=== PATIENT | male | born 1945 | race Caucasian/White ===

== ENCOUNTER 2017-11-17 12:35 | Inpatient (IN) | payer OTHER ==
[2017-11-17] MEDS ORDERED: ONDANSETRON 4 MG INJ IV ×2 (12:59→17:00)
[2017-11-17] MEDS ORDERED: NITROGLYCERIN 2% 1 GM OINT PKT TD (12:59)
[2017-11-17] MEDS ORDERED: morphine 4 MG/ML VIAL IV (12:59)
[2017-11-17] MEDS ORDERED: NITROGLYCERIN (SL) 0.4 MG TAB SL (13:00)
[2017-11-17 13:17] LABS: ADD MAN DIFF? NO
[2017-11-17 13:22] LABS: WHITE BLOOD COUNT 12.2 10^3/ul (4.8-10.8)
[2017-11-17 13:22] LABS: BASOPHIL # 0.1 10^3/ul (0.0-0.1); BASOPHILS % 0.4 % (0.0-2.0); EOSINOPHILS % 0.2 % (0.0-7.0); HEMATOCRIT 36.1 % (42.0-52.0); HEMOGLOBIN 11.9 g/dl (14.0-18.0); LYMPHOCYTES # 0.7 10^3/ul (0.8-2.9); LYMPHOCYTES % 5.9 % (15.0-51.0); MEAN CORPUSCULAR HEMOGLOBIN 33.3 pg (29.0-33.0); MEAN CORPUSCULAR VOLUME 101.1 fl (82.0-101.0); MEAN PLATELET VOLUME 10.2 fl (7.4-10.4); MONOCYTE # 0.8 10^3/ul (0.3-0.9); MONOCYTES % 6.8 % (0.0-11.0); NEUTROPHIL # 10.6 10^3/ul (1.6-7.5); NEUTROPHILS % 86.2 % (39.0-77.0); PLATELET COUNT 196 10^3/UL (140-415); RED BLOOD COUNT 3.57 10^6/ul (4.70-6.10); RED CELL DISTRIBUTION WIDTH 13.5 % (11.5-14.5)
[2017-11-17 13:39] LABS: ALANINE AMINOTRANSFERASE 21 IU/L (13-69); ALBUMIN 3.7 g/dl (3.3-4.9); ALBUMIN/GLOBULIN RATIO 1.54; ALKALINE PHOSPHATASE 72 IU/L (42-121); ANION GAP 12 (8-16); ASPARTATE AMINO TRANSFERASE 34 IU/L (15-46); BILIRUBIN,INDIRECT 0.2 mg/dl (0-1.1); BILIRUBIN,TOTAL 0.2 mg/dl (0.2-1.3); BLOOD UREA NITROGEN 36 mg/dl (7-20); CALCIUM 8.7 mg/dl (8.4-10.2); CARBON DIOXIDE 23 mmol/L (21-31); CHLORIDE 110 mmol/L (97-110); CREATININE 2.84 mg/dl (0.61-1.24); GLUCOSE 54 mg/dl (70-220); POTASSIUM 4.2 mmol/L (3.5-5.1); SODIUM 141 mmol/L (135-144); TOTAL PROTEIN 6.1 g/dl (6.1-8.1)
[2017-11-17 13:47] LABS: B-TYPE NATRIURETIC PEPTIDE 1360 PG/ML (0-125)
[2017-11-17 13:51] LABS: TROPONIN-I 0.044 ng/ml (0.000-0.120)
[2017-11-17] MEDS ORDERED: SOD CHLORIDE 0.9% 1,000 ML IV (16:46)
[2017-11-17] MEDS ORDERED: MAGNESIUM HYDROXIDE 30ML CUP PO (17:00)
[2017-11-17] MEDS ORDERED: NACL 0.9% 3 ML SYG IV (17:00)
[2017-11-17] MEDS ORDERED: ACETAMINOPHEN 325 MG TAB PO ×2 (17:00)
[2017-11-17] MEDS ORDERED: NA PHOSPHATE/BIPHOS 133 ML ENEMA PR (17:00)
[2017-11-17] MEDS ORDERED: DOCUSATE SODIUM 100 MG CAP PO (17:00)
[2017-11-17] MEDS ORDERED: ALBUTEROL/IPRATROPIUM (NEB) 3 ML AMP HHN (17:00)
[2017-11-17 17:10] LABS: PROTIME 12.2 Sec (11.9-14.9)
[2017-11-17 17:11] LABS: PARTIAL THROMBOPLASTIN TIME 38.8 Sec (23.0-35.0)
[2017-11-17 17:16] LABS: CREATINE KINASE 1239 IU/L (23-200)
[2017-11-17 17:27] LABS: CK-MB 5.07 ng/ml (0.0-2.4)
[2017-11-17] MEDS ORDERED: DEXTROSE 50% 50 ML SYRINGE IV ×2 (17:30)
[2017-11-17] MEDS ORDERED: GLUCAGON 1 MG INJ IM (17:30)
[2017-11-17] MEDS ORDERED: GLUCOSE GEL 15 GRAM TUBE PO ×2 (17:30)
[2017-11-17] MEDS ORDERED: GLUCOSE GEL 15 GRAM TUBE BUCCAL (17:30)
[2017-11-17 17:33] LABS: FREE T4 (FREE THYROXINE) 1.13 ng/dl (0.78-2.44)
[2017-11-17 18:22] LABS: ADD UMIC YES; UR ASCORBIC ACID NEGATIVE (NEGATIVE); UR BILIRUBIN (Dip) NEGATIVE (NEGATIVE); UR BLOOD (Dip) 1+ mg/dL (NEGATIVE); UR CLARITY CLEAR (CLEAR); UR COLOR STRAW (YELLOW); UR GLUCOSE (Dip) 1+ mg/dL (NEGATIVE); UR KETONES (Dip) NEGATIVE (NEGATIVE); UR LEUKOCYTE ESTERASE (Dip) NEGATIVE Leu/ul (NEGATIVE); UR NITRITE (Dip) NEGATIVE (NEGATIVE); UR RBC 0 /HPF (0-5); UR SPECIFIC GRAVITY (Dip) 1.006 (1.003-1.030); UR TOTAL PROTEIN (Dip) 2+ mg/dl (NEGATIVE); UR UROBILINOGEN (Dip) NEGATIVE (NEGATIVE); UR WBC 0 /HPF (0-5)
[2017-11-17] MEDS: HYDROCODONE/APAP (5/325) TAB PO (18:41)
[2017-11-17] MEDS: INSULIN ASPART [NOVOLOG] 3 ML PEN SC ×2 (18:54→21:00)
[2017-11-17 18:55] LABS: SODIUM,URINE RANDOM 65 mmol/L (30-90)
[2017-11-17 18:55] LABS: CREATININE,URINE RANDOM 31.44 mg/dl (20-370); CREATININE,URINE RANDOM 31.73 mg/dl (20-370)
[2017-11-17 19:03] LABS: PROTEIN/CREAT RATIO 7.91 RATIO
[2017-11-17] MEDS: SOD CHLORIDE 0.45% 1,000 ML IV (19:18)
[2017-11-17 22:03] LABS: HAAIG REFLEX REFLEX FILED
[2017-11-17] MEDS: SOD CHLORIDE 0.9% 1,000 ML IV (22:11)
[2017-11-17 22:22] LABS: PHOSPHORUS 3.6 mg/dl (2.5-4.9)
[2017-11-17 22:35] LABS: CK-MB 5.97 ng/ml (0.0-2.4)
[2017-11-17 22:41] LABS: TROPONIN-I 0.186 ng/ml (0.000-0.120)
[2017-11-17 22:53] LABS: CK INDEX 0.3; CREATINE KINASE 2325 IU/L (23-200)
[2017-11-17 22:54] LABS: HEPATITIS B SURFACE ANTIGEN NEGATIVE (NEGATIVE)
[2017-11-17 23:12] LABS: HEPATITIS B CORE ANTIBODY NEGATIVE (NEGATIVE); HEPATITIS C VIRAL ANTIBODY NEGATIVE (NEGATIVE)
[2017-11-17] MEDS: FAMOTIDINE 20 MG TAB PO (23:16)
[2017-11-17] MEDS: ATORVASTATIN 80 MG TAB PO (23:16)
[2017-11-17] MEDS: NICOTINE (21 MG/24 HR) PATCH TRANSDERM (23:16)
[2017-11-17] MEDS: HEPARIN 5,000 UNIT/0.5 ML VIAL SC (23:40)
[2017-11-17] MEDS: INSULIN GLARGINE [LANTus] (100 UNITS/ML) SYG SC (23:41)
[2017-11-18] MEDS: INSULIN ASPART [NOVOLOG] 3 ML PEN SC ×5 (01:20→20:53)
[2017-11-18] MEDS: ACCU-CHEK XX (02:00)
[2017-11-18] MEDS: HYDROCODONE/APAP (5/325) TAB PO ×3 (05:27→19:31)
[2017-11-18 05:42] LABS: ADD MAN DIFF? NO
[2017-11-18 05:50] LABS: BASOPHILS % 0.7 % (0.0-2.0); EOSINOPHILS # 0.1 10^3/ul (0.0-0.5); EOSINOPHILS % 1.6 % (0.0-7.0); HEMATOCRIT 33.3 % (42.0-52.0); HEMOGLOBIN 10.7 g/dl (14.0-18.0); LYMPHOCYTES # 0.9 10^3/ul (0.8-2.9); LYMPHOCYTES % 14.3 % (15.0-51.0); MEAN CORPUSCULAR HGB CONC 32.1 g/dl (32.0-37.0); MEAN CORPUSCULAR VOLUME 102.8 fl (82.0-101.0); MONOCYTE # 0.6 10^3/ul (0.3-0.9); NEUTROPHIL # 4.4 10^3/ul (1.6-7.5); NEUTROPHILS % 73.2 % (39.0-77.0); PLATELET COUNT 175 10^3/UL (140-415); RED BLOOD COUNT 3.24 10^6/ul (4.70-6.10); RED CELL DISTRIBUTION WIDTH 13.8 % (11.5-14.5)
[2017-11-18 05:50] LABS: WHITE BLOOD COUNT 6.1 10^3/ul (4.8-10.8)
[2017-11-18 06:07] LABS: CREATINE KINASE 1449 IU/L (23-200)
[2017-11-18 06:09] LABS: ALANINE AMINOTRANSFERASE 20 IU/L (13-69); ALBUMIN 3.1 g/dl (3.3-4.9); ALKALINE PHOSPHATASE 66 IU/L (42-121); ANION GAP 6 (8-16); ASPARTATE AMINO TRANSFERASE 34 IU/L (15-46); BILIRUBIN,INDIRECT 0.2 mg/dl (0-1.1); BILIRUBIN,TOTAL 0.2 mg/dl (0.2-1.3); BLOOD UREA NITROGEN 35 mg/dl (7-20); CALCIUM 8.5 mg/dl (8.4-10.2); CARBON DIOXIDE 27 mmol/L (21-31); CHLORIDE 115 mmol/L (97-110); CREATININE 2.57 mg/dl (0.61-1.24); GLUCOSE 96 mg/dl (70-220); SODIUM 144 mmol/L (135-144); TOTAL PROTEIN 5.3 g/dl (6.1-8.1)
[2017-11-18 06:16] LABS: CK INDEX 0.3; CK-MB 3.98 ng/ml (0.0-2.4)
[2017-11-18 06:20] LABS: CHOL/HDL RATIO 4.2 RATIO; HDL CHOLESTEROL 32 mg/dl (31-75); LDL CHOLESTEROL,CALCULATED 58 mg/dl; TRIGLYCERIDES 226 mg/dl (0-149)
[2017-11-18 06:20] LABS: CHOLESTEROL 135 mg/dl (100-200)
[2017-11-18 06:23] LABS: PHOSPHORUS 4.2 mg/dl (2.5-4.9)
[2017-11-18 06:23] LABS: MAGNESIUM 1.9 mg/dl (1.7-2.5)
[2017-11-18 06:27] LABS: TROPONIN-I 0.152 ng/ml (0.000-0.120)
[2017-11-18 06:54] LABS: HEMOGLOBIN A1C 7.1 % (0-5.9)
[2017-11-18] MEDS: SOD CHLORIDE 0.9% 1,000 ML IV ×2 (07:47→17:37)
[2017-11-18] MEDS: CLOPIDOGREL 75 MG TAB PO (08:38)
[2017-11-18] MEDS: NICOTINE (21 MG/24 HR) PATCH TRANSDERM (08:38)
[2017-11-18] MEDS: ASPIRIN (EC) 325 MG TAB PO (08:38)
[2017-11-18] MEDS: HEPARIN 5,000 UNIT/0.5 ML VIAL SC ×2 (08:49→20:44)
[2017-11-18] MEDS ORDERED: AMLODIPINE 5 MG TAB PO (14:30)
[2017-11-18] MEDS: FAMOTIDINE 20 MG TAB PO (20:41)
[2017-11-18] MEDS: ATORVASTATIN 80 MG TAB PO (20:41)
[2017-11-18] MEDS: INSULIN GLARGINE [LANTus] (100 UNITS/ML) SYG SC (20:45)
[2017-11-19] MEDS: hydrALAzine 20 MG INJ IV (00:44)
[2017-11-19] MEDS: HYDROCODONE/APAP (5/325) TAB PO (00:44)
[2017-11-19] MEDS: morphine 2 MG INJ IV ×2 (01:27→20:07)
[2017-11-19] MEDS: ACCU-CHEK XX (02:00)
[2017-11-19] MEDS: LORAZEPAM 2 MG INJ IV (02:53)
[2017-11-19] MEDS: INSULIN ASPART [NOVOLOG] 3 ML PEN SC ×4 (07:00→20:42)
[2017-11-19] MEDS: SOD CHLORIDE 0.9% 1,000 ML IV ×2 (08:10→21:30)
[2017-11-19] MEDS: CLOPIDOGREL 75 MG TAB PO (08:45)
[2017-11-19] MEDS: ASPIRIN (EC) 325 MG TAB PO (08:45)
[2017-11-19] MEDS: NICOTINE (21 MG/24 HR) PATCH TRANSDERM (08:45)
[2017-11-19] MEDS: HEPARIN 5,000 UNIT/0.5 ML VIAL SC ×2 (08:54→20:45)
[2017-11-19 10:45] LABS: ADD MAN DIFF? NO
[2017-11-19 10:51] LABS: WHITE BLOOD COUNT 9.4 10^3/ul (4.8-10.8)
[2017-11-19 10:51] LABS: ABNORMAL IP MESSAGE 1; BASOPHILS % 0.4 % (0.0-2.0); EOSINOPHILS % 0.1 % (0.0-7.0); HEMATOCRIT 38.6 % (42.0-52.0); HEMOGLOBIN 12.4 g/dl (14.0-18.0); LYMPHOCYTES # 0.5 10^3/ul (0.8-2.9); LYMPHOCYTES % 5.6 % (15.0-51.0); MEAN CORPUSCULAR HEMOGLOBIN 32.9 pg (29.0-33.0); MEAN CORPUSCULAR HGB CONC 32.1 g/dl (32.0-37.0); MEAN CORPUSCULAR VOLUME 102.4 fl (82.0-101.0); MEAN PLATELET VOLUME 10.6 fl (7.4-10.4); MONOCYTE # 0.4 10^3/ul (0.3-0.9); MONOCYTES % 4.4 % (0.0-11.0); NEUTROPHIL # 8.4 10^3/ul (1.6-7.5); NEUTROPHILS % 89.1 % (39.0-77.0); PLATELET COUNT 206 10^3/UL (140-415); POSITIVE DIFF @See below; RED BLOOD COUNT 3.77 10^6/ul (4.70-6.10); RED CELL DISTRIBUTION WIDTH 13.5 % (11.5-14.5)
[2017-11-19 11:14] LABS: CREATINE KINASE 1032 IU/L (23-200)
[2017-11-19 11:15] LABS: ANION GAP 16 (8-16); BLOOD UREA NITROGEN 26 mg/dl (7-20); CARBON DIOXIDE 21 mmol/L (21-31); CHLORIDE 110 mmol/L (97-110); CREATININE 2.52 mg/dl (0.61-1.24); GLUCOSE 125 mg/dl (70-220); POTASSIUM 4.3 mmol/L (3.5-5.1); SODIUM 143 mmol/L (135-144)
[2017-11-19] MEDS: ATENOLOL 100 MG TAB PO (11:29)
[2017-11-19] MEDS: AMLODIPINE 10 MG TAB PO (11:29)
[2017-11-19] MEDS: ATORVASTATIN 80 MG TAB PO (20:42)
[2017-11-19] MEDS: FAMOTIDINE 20 MG TAB PO (20:42)
[2017-11-19] MEDS: INSULIN GLARGINE [LANTus] (100 UNITS/ML) SYG SC (20:45)
[2017-11-20] MEDS: hydrALAzine 20 MG INJ IV (00:55)
[2017-11-20] MEDS: ONDANSETRON 4 MG INJ IV (01:24)
[2017-11-20] MEDS: ACCU-CHEK XX (02:00)
[2017-11-20] MEDS: LORAZEPAM 2 MG INJ IV ×3 (02:13→15:02)
[2017-11-20] MEDS: NITROGLYCERIN (SL) 0.4 MG TAB SL ×4 (02:29→21:11)
[2017-11-20 06:13] LABS: ADD MAN DIFF? NO
[2017-11-20 06:16] LABS: ABNORMAL IP MESSAGE 1; BASOPHIL # 0.1 10^3/ul (0.0-0.1); BASOPHILS % 0.4 % (0.0-2.0); HEMATOCRIT 40.9 % (42.0-52.0); HEMOGLOBIN 13.1 g/dl (14.0-18.0); LYMPHOCYTES # 0.5 10^3/ul (0.8-2.9); LYMPHOCYTES % 4.1 % (15.0-51.0); MEAN CORPUSCULAR HEMOGLOBIN 32.9 pg (29.0-33.0); MEAN CORPUSCULAR VOLUME 102.8 fl (82.0-101.0); MEAN PLATELET VOLUME 11.1 fl (7.4-10.4); MONOCYTE # 0.4 10^3/ul (0.3-0.9); MONOCYTES % 3.3 % (0.0-11.0); NEUTROPHIL # 12.1 10^3/ul (1.6-7.5); NEUTROPHILS % 91.6 % (39.0-77.0); PLATELET COUNT 229 10^3/UL (140-415); POSITIVE DIFF @See below; RED BLOOD COUNT 3.98 10^6/ul (4.70-6.10); RED CELL DISTRIBUTION WIDTH 13.7 % (11.5-14.5)
[2017-11-20 06:16] LABS: WHITE BLOOD COUNT 13.2 10^3/ul (4.8-10.8)
[2017-11-20 06:54] LABS: CREATINE KINASE 701 IU/L (23-200)
[2017-11-20 06:54] LABS: ANION GAP 16 (8-16); BLOOD UREA NITROGEN 29 mg/dl (7-20); CARBON DIOXIDE 22 mmol/L (21-31); CHLORIDE 109 mmol/L (97-110); CREATININE 2.35 mg/dl (0.61-1.24); GLUCOSE 164 mg/dl (70-220); POTASSIUM 4.4 mmol/L (3.5-5.1); SODIUM 143 mmol/L (135-144)
[2017-11-20] MEDS: INSULIN ASPART [NOVOLOG] 3 ML PEN SC ×4 (07:00→21:00)
[2017-11-20] MEDS: CLOPIDOGREL 75 MG TAB PO (08:20)
[2017-11-20] MEDS: ATENOLOL 100 MG TAB PO (08:20)
[2017-11-20] MEDS: ASPIRIN (EC) 325 MG TAB PO (08:20)
[2017-11-20] MEDS: AMLODIPINE 10 MG TAB PO (08:20)
[2017-11-20] MEDS: NICOTINE (21 MG/24 HR) PATCH TRANSDERM (08:21)
[2017-11-20] MEDS: HEPARIN 5,000 UNIT/0.5 ML VIAL SC ×2 (08:32→21:00)
[2017-11-20] MEDS: SOD CHLORIDE 0.9% 1,000 ML IV (11:04)
[2017-11-20] MEDS: INSULIN GLARGINE [LANTus] (100 UNITS/ML) SYG SC (21:00)
[2017-11-20] MEDS: FAMOTIDINE 20 MG TAB PO (21:19)
[2017-11-20] MEDS: ATORVASTATIN 80 MG TAB PO (21:19)
[2017-11-21] MEDS: SOD CHLORIDE 0.9% 1,000 ML IV (00:10)
[2017-11-21] MEDS: ACCU-CHEK XX (02:00)
[2017-11-21] MEDS: HALOPERIDOL 5 MG INJ IM (06:03)
[2017-11-21] MEDS: INSULIN ASPART [NOVOLOG] 3 ML PEN SC ×3 (07:00→19:09)
[2017-11-21] MEDS: AMLODIPINE 10 MG TAB PO (08:48)
[2017-11-21] MEDS: NICOTINE (21 MG/24 HR) PATCH TRANSDERM (08:48)
[2017-11-21] MEDS: ATENOLOL 100 MG TAB PO (08:48)
[2017-11-21] MEDS: HEPARIN 5,000 UNIT/0.5 ML VIAL SC ×2 (09:00→20:52)
[2017-11-21 12:50] LABS: CREATINE KINASE 617 IU/L (23-200)
[2017-11-21 13:00] LABS: CK INDEX 0.9; CK-MB 5.73 ng/ml (0.0-2.4)
[2017-11-21 14:14] LABS: ADD MAN DIFF? NO
[2017-11-21 14:17] LABS: BASOPHIL # 0.1 10^3/ul (0.0-0.1); BASOPHILS % 0.6 % (0.0-2.0); EOSINOPHILS % 0.4 % (0.0-7.0); HEMATOCRIT 38.7 % (42.0-52.0); HEMOGLOBIN 12.8 g/dl (14.0-18.0); LYMPHOCYTES # 0.8 10^3/ul (0.8-2.9); MEAN CORPUSCULAR HEMOGLOBIN 32.8 pg (29.0-33.0); MEAN CORPUSCULAR HGB CONC 33.1 g/dl (32.0-37.0); MEAN CORPUSCULAR VOLUME 99.2 fl (82.0-101.0); MEAN PLATELET VOLUME 10.5 fl (7.4-10.4); MONOCYTE # 0.8 10^3/ul (0.3-0.9); MONOCYTES % 7.1 % (0.0-11.0); NEUTROPHIL # 9.2 10^3/ul (1.6-7.5); NEUTROPHILS % 84.7 % (39.0-77.0); PLATELET COUNT 223 10^3/UL (140-415); RED CELL DISTRIBUTION WIDTH 13.5 % (11.5-14.5)
[2017-11-21 14:17] LABS: WHITE BLOOD COUNT 10.8 10^3/ul (4.8-10.8)
[2017-11-21 14:37] LABS: ANION GAP 15 (8-16); BLOOD UREA NITROGEN 33 mg/dl (7-20); CALCIUM 8.9 mg/dl (8.4-10.2); CARBON DIOXIDE 20 mmol/L (21-31); CHLORIDE 108 mmol/L (97-110); CREATININE 2.24 mg/dl (0.61-1.24); GLUCOSE 204 mg/dl (70-220); POTASSIUM 4.3 mmol/L (3.5-5.1); SODIUM 139 mmol/L (135-144)
[2017-11-21] MEDS: FAMOTIDINE 20 MG TAB PO (20:47)
[2017-11-21] MEDS: ATORVASTATIN 80 MG TAB PO (20:47)
[2017-11-21] MEDS: INSULIN GLARGINE [LANTus] (100 UNITS/ML) SYG SC (20:52)
[2017-11-21] MEDS: Insulin NOVOLOG SS MILD Algorithm (SS with meals and bedtime) SC (21:00)
[2017-11-21] MEDS: CLOPIDOGREL 75 MG TAB PO (21:00)
[2017-11-22] MEDS: morphine LIQ (10 MG/5 ML) CUP PO (01:02)
[2017-11-22] MEDS: ZOLPIDEM 5 MG TAB PO (01:30)
[2017-11-22] MEDS: ACCU-CHEK XX (02:00)
[2017-11-22] MEDS: Insulin NOVOLOG SS MILD Algorithm (SS with meals and bedtime) SC ×4 (08:00→20:52)
[2017-11-22] MEDS: ATENOLOL 100 MG TAB PO (08:57)
[2017-11-22] MEDS: AMLODIPINE 10 MG TAB PO (08:57)
[2017-11-22] MEDS: ASPIRIN (EC) 81 MG TAB PO (08:57)
[2017-11-22] MEDS: NICOTINE (21 MG/24 HR) PATCH TRANSDERM (08:58)
[2017-11-22] MEDS: HEPARIN 5,000 UNIT/0.5 ML VIAL SC ×2 (09:01→20:50)
[2017-11-22 10:21] LABS: ADD MAN DIFF? NO
[2017-11-22 10:24] LABS: WHITE BLOOD COUNT 7.7 10^3/ul (4.8-10.8)
[2017-11-22 10:24] LABS: BASOPHIL # 0.1 10^3/ul (0.0-0.1); BASOPHILS % 0.8 % (0.0-2.0); EOSINOPHILS # 0.1 10^3/ul (0.0-0.5); EOSINOPHILS % 1.4 % (0.0-7.0); HEMATOCRIT 36.4 % (42.0-52.0); HEMOGLOBIN 12.1 g/dl (14.0-18.0); LYMPHOCYTES # 0.9 10^3/ul (0.8-2.9); LYMPHOCYTES % 11.8 % (15.0-51.0); MEAN CORPUSCULAR HEMOGLOBIN 32.7 pg (29.0-33.0); MEAN CORPUSCULAR HGB CONC 33.2 g/dl (32.0-37.0); MEAN CORPUSCULAR VOLUME 98.4 fl (82.0-101.0); MEAN PLATELET VOLUME 10.7 fl (7.4-10.4); MONOCYTE # 0.9 10^3/ul (0.3-0.9); MONOCYTES % 11.1 % (0.0-11.0); NEUTROPHIL # 5.8 10^3/ul (1.6-7.5); NEUTROPHILS % 74.4 % (39.0-77.0); PLATELET COUNT 220 10^3/UL (140-415); RED CELL DISTRIBUTION WIDTH 13.4 % (11.5-14.5)
[2017-11-22 10:44] LABS: ANION GAP 12 (8-16); BLOOD UREA NITROGEN 29 mg/dl (7-20); CALCIUM 8.6 mg/dl (8.4-10.2); CARBON DIOXIDE 23 mmol/L (21-31); CHLORIDE 107 mmol/L (97-110); CREATININE 2.37 mg/dl (0.61-1.24); GLUCOSE 114 mg/dl (70-220); POTASSIUM 3.5 mmol/L (3.5-5.1); SODIUM 138 mmol/L (135-144)
[2017-11-22] MEDS: CYANOCOBALAMIN 1000 MCG INJ IM (15:04)
[2017-11-22 19:21] LABS: PTH CALCIUM 8.8 mg/dL (8.6-10.3)
[2017-11-22] MEDS: ATORVASTATIN 80 MG TAB PO (20:37)
[2017-11-22] MEDS: FAMOTIDINE 20 MG TAB PO (20:37)
[2017-11-22] MEDS: INSULIN GLARGINE [LANTus] (100 UNITS/ML) SYG SC (20:51)
[2017-11-22] MEDS: LORAZEPAM 2 MG INJ IV ×2 (20:52→23:52)
[2017-11-23] MEDS: HALOPERIDOL 5 MG INJ IM (00:08)
[2017-11-23] MEDS: ACCU-CHEK XX (02:00)
[2017-11-23] MEDS: LORAZEPAM 2 MG INJ IV ×2 (02:58→11:52)
[2017-11-23 06:16] LABS: ADD MAN DIFF? NO
[2017-11-23 06:27] LABS: BASOPHILS % 0.4 % (0.0-2.0); EOSINOPHILS % 0.4 % (0.0-7.0); HEMATOCRIT 39.1 % (42.0-52.0); LYMPHOCYTES # 0.8 10^3/ul (0.8-2.9); LYMPHOCYTES % 8.3 % (15.0-51.0); MEAN CORPUSCULAR HEMOGLOBIN 32.5 pg (29.0-33.0); MEAN CORPUSCULAR HGB CONC 33.2 g/dl (32.0-37.0); MEAN CORPUSCULAR VOLUME 97.8 fl (82.0-101.0); MEAN PLATELET VOLUME 10.8 fl (7.4-10.4); MONOCYTE # 0.9 10^3/ul (0.3-0.9); MONOCYTES % 8.9 % (0.0-11.0); NEUTROPHILS % 81.5 % (39.0-77.0); PLATELET COUNT 226 10^3/UL (140-415); RED CELL DISTRIBUTION WIDTH 13.1 % (11.5-14.5)
[2017-11-23 06:27] LABS: WHITE BLOOD COUNT 9.8 10^3/ul (4.8-10.8)
[2017-11-23] MEDS: Insulin NOVOLOG SS MILD Algorithm (SS with meals and bedtime) SC ×4 (07:00→21:00)
[2017-11-23 07:46] LABS: ANION GAP 13 (8-16); BLOOD UREA NITROGEN 26 mg/dl (7-20); CALCIUM 8.8 mg/dl (8.4-10.2); CARBON DIOXIDE 23 mmol/L (21-31); CHLORIDE 109 mmol/L (97-110); CREATININE 2.43 mg/dl (0.61-1.24); GLUCOSE 114 mg/dl (70-220); POTASSIUM 3.2 mmol/L (3.5-5.1); SODIUM 142 mmol/L (135-144)
[2017-11-23] MEDS: ASPIRIN (EC) 81 MG TAB PO (08:03)
[2017-11-23] MEDS: AMLODIPINE 10 MG TAB PO ×2 (08:03→16:30)
[2017-11-23] MEDS: ATENOLOL 100 MG TAB PO ×2 (08:04→16:29)
[2017-11-23] MEDS: NICOTINE (21 MG/24 HR) PATCH TRANSDERM (08:59)
[2017-11-23] MEDS: HEPARIN 5,000 UNIT/0.5 ML VIAL SC ×2 (09:01→21:24)
[2017-11-23 11:46] LABS: PTH INTACT 95 pg/mL (14-64)
[2017-11-23] MEDS: QUETIAPINE 25 MG TAB PO ×2 (12:30→21:22)
[2017-11-23] MEDS: POTASSIUM CHLORIDE 100 ML IVPB ×2 (13:53→17:16)
[2017-11-23] MEDS: ATORVASTATIN 80 MG TAB PO (21:20)
[2017-11-23] MEDS: FAMOTIDINE 20 MG TAB PO (21:22)
[2017-11-23] MEDS: INSULIN GLARGINE [LANTus] (100 UNITS/ML) SYG SC (21:31)
== END 2017-11-23 21:55 | DRG 64 ==
LOC: 6WM 11-19 05:50 → E/R 12:35 → 6WM 11-19 20:35
PROVIDERS: Hospitalist
DX: I63.9 Cerebral infarction, unspecified (principal); I21.4 Non-ST elevation (NSTEMI) myocardial infarction; M62.82 Rhabdomyolysis; N17.9 Acute kidney failure, unspecified; G93.49 Other encephalopathy; E11.22 Type 2 diabetes mellitus with diabetic chronic kidney disease; I12.9 Hypertensive chronic kidney disease with stage 1 through stage 4 chronic kidney disease, or unspecified chronic kidney disease; N18.9 Chronic kidney disease, unspecified; E11.40 Type 2 diabetes mellitus with diabetic neuropathy, unspecified; E11.51 Type 2 diabetes mellitus with diabetic peripheral angiopathy without gangrene; Z86.73 Personal history of transient ischemic attack (TIA), and cerebral infarction without residual deficits; F17.219 Nicotine dependence, cigarettes, with unspecified nicotine-induced disorders; E11.649 Type 2 diabetes mellitus with hypoglycemia without coma; E78.5 Hyperlipidemia, unspecified; E78.1 Pure hyperglyceridemia; D63.1 Anemia in chronic kidney disease; E53.8 Deficiency of other specified B group vitamins; E11.21 Type 2 diabetes mellitus with diabetic nephropathy
CPT/HCPCS: 36415; 70450; 70551; 71045; 76775; 80048; 80053; 80061; 81001; 81003; 82550; 82553; 82570; 82607; 82962; 83036; 83735; 83880; 83970; 84100; 84155; 84300; 84439; 84443; 84484; 85025; 85610; 85730; 86704; 86709; 86803; 87086; 87340; 92610; 93005; 93306; 93880; 97110; 97116; 97162; 97165; 97530; 97535; 99285-25; G0378